=== PATIENT | male | born 1995 | race Caucasian/White ===

== ENCOUNTER 2022-04-10 01:37 | Emergency (ER) | payer MEDICARE ==
[2022-04-10 02:18] LABS: BASOPHIL 0.7 % (0-2); EOSINOPHIL 3.2 % (0-5); HCT 47.7 % (42.0-52.0); HGB 16.3 g/dl (13.2-18.0); LYMPHOCYTE 21.7 % (15-48); MCH 29.9 pg (25.0-31.0); MCHC 34.2 g/dL (32.0-36.0); MCV 87.4 fL (78.0-100.0); MONOCYTE 7.4 % (0-12); MPV 12.6 fL (6.0-9.5); NEUTROPHIL 66.7 % (41-80); NRBC 0; PLT 206 K/uL (150-400); RBC 5.46 M/uL (4.70-6.00); RDW 12.6 % (11.5-14.0); WBC 10.9 K/uL (4.0-10.5)
[2022-04-10 02:59] LABS: CORONAVIRUS 2019 SARS-COV-2 NEGATIVE (NEGATIVE); INFLUENZA A NAA NEGATIVE (NEGATIVE)
[2022-04-10 03:07] LABS: ALBUMIN 4.2 g/dL (3.4-5.0); BILIRUBIN - TOTAL 0.4 mg/dL (0.2-1.0); BUN/CREAT RATIO (CALC) 9.9 RATIO; CREATININE 0.91 mg/dL (0.67-1.17); GLOBULIN (CALCULATION) 3.6 g/dL; POTASSIUM 3.6 mmol/L (3.5-5.1); TOTAL PROTEIN 7.8 g/dL (6.4-8.2)
[2022-04-10] MEDS ORDERED: MEDROL 4MG DOSEP4 MG PO (03:44)
[2022-04-10] MEDS ORDERED: VENTOLIN HFA IN18 GM INH (03:44)
== END 2022-04-10 04:26 | disposition home or self-care (01) ==
LOC: FER 01:37
PROVIDERS: Internal Medicine
DX: R06.02 Shortness of breath (principal); D72.10 Eosinophilia, unspecified; K20.90 Esophagitis, unspecified without bleeding; Z20.822 Contact with and (suspected) exposure to COVID-19
CPT/HCPCS: 36415; 71045; 80053; 83605; 84484; 85025; 93005; 94640; 94664; 94760; J1100; U0002